=== PATIENT | female | born 1955 | race Caucasian/White ===

== ENCOUNTER 2017-10-22 17:28 | Emergency (ER) | payer OTHER, SELFPAY ==
--- NOTE | 2017-10-22 13:34 | EKG12_ITS ---
Test Reason : CP Blood Pressure : / mmHG Vent. Rate : 092 BPM Atrial Rate : 092 BPM P-R Int : 152 ms QRS Dur : 076 ms QT Int : 368 ms P-R-T Axes : 071 026 045 degrees QTc Int : 455 ms Normal sinus rhythm Normal ECG Confirmed by TED VELASCO MD ([id number]), videotape editor VIRGEN VEGA ([id number] on 10/26/2017 5:41:18 PM Referred By: MAYUR Confirmed By:TED VELASCO MD
--- NOTE | 2017-10-22 17:28 | DT_ITS ---
This patient was seen during an EMR downtime October 17, 2017 - October 24, 2017. This patient may have a combination of paper and electronic documentation or all paper documentation. All documentation is viewable within the e-chart portion of [facility] for each patient visit.
--- NOTE | 2017-10-22 19:08 | CT_ITS ---
STUDY: CTA CHEST REASON FOR EXAM: Unknown, 62 years old. Chest and back pain. Thigh pain. RADIATION DOSAGE (If Supplied By Facility): CTDIvol = ( 15.41 ) mGy, DLP = ( 1213.51 ) mGycm TECHNIQUE: The examination was performed with the intravenous administration of 100ML ml of Isovue 370 contrast material. Post-processing of the angiographic images was performed, with multiplanar reformation and 3D reconstruction. Individualized dose optimization techniques were used for this CT. COMPARISON: None. FINDINGS: Normal enhancement of the main pulmonary artery and right and left pulmonary arteries. Normal enhancement of the bilateral peripheral pulmonary arteries. There is no demonstrated pulmonary embolism. There is mild atherosclerotic calcification of the aortic arch and proximal descending thoracic aorta. There is no demonstrated aortic dissection. Normal heart and pericardium. Normal mediastinum. Normal hilar regions. Normal visualized trachea and bronchi. The lungs are well expanded. There is a 2.5 mm calcified granuloma in the anterolateral periphery of the right upper lobe area. There is ill-defined subsegmental density in the lateral periphery of the left upper lobe/lingula consistent with inflammatory/infectious change. Curvilinear subsegmental atelectasis or scarring present in the posterior right lower lobe. Normal pleura. Normal chest wall structures. There are multilevel degenerative changes of the thoracic spine. Incidental note of borderline enlarged lymph nodes at the larry hepatis. IMPRESSION: 1. No demonstrated pulmonary embolism or arterial dissection. 2. Ill-defined subsegmental density is acute versus chronic inflammatory/infectious change in the lateral periphery of the left upper lobe/lingula. 3. Small calcified granuloma in the right upper lobe, as well as minor curvilinear scarring or atelectasis in the posterior right lower lobe. 4. Borderline enlarged lymph nodes incidentally noted at the larry hepatis. Electronically Signed: Jovani Anne MD at 20:02 EDT , Service support , PROCEDURE: CTA ABDOMEN AND PELVIS REASON FOR EXAM: Female, 62 years old. Chest and back pain. Bilateral thigh pain. RADIATION DOSAGE (If Supplied By Facility): CTDIvol = ([ ]) mGy, DLP = ([ ]) mGycm Individualized dose optimization techniques were used for this CT. ? TECHNIQUE: Axial CT angiography multi-detector data acquisition was obtained from the lung bases to the ischial tuberosities following intravenous administration of 100 ml of Isovue-370 contrast. Axial images and MIP images were reconstructed from the axial data set. Post-processing of the angiographic images was performed, with multiplanar reformation and 3D reconstruction. TECHNICAL QUALITY: Good COMPARISON: None. Descriptors of Narrowing: None (0%) Mild (< 50%) Moderate (50-70%) Severe (70-90%) Subtotal/Total Occlusion (90-100%) Non-Evaluable (technically non-diagnostic) FINDINGS: Abdominal aorta: There is mild to moderate diffuse atherosclerotic calcific plaquing. There is mild fusiform ectasia of the mid to distal infrarenal aorta, as after 1.64 x 1.68 cm. There is no demonstrated dissection. Celiac artery: No demonstrated narrowing. Normal branching anatomy. There is borderline inflammatory stranding around the main trunk of the celiac axis. Superior mesenteric artery: No demonstrated narrowing. Inferior mesenteric artery: Mild ostial narrowing. Right renal artery(arteries): No demonstrated narrowing. Left renal artery(arteries): No demonstrated narrowing. Right common iliac artery: Mild to moderate calcific plaquing with no demonstrated narrowing. Right external iliac artery: No demonstrated narrowing. Right internal iliac artery: No demonstrated narrowing. Left common iliac artery: Mild atherosclerotic calcific plaquing with no demonstrated narrowing. Left external iliac artery: No demonstrated narrowing. Left internal iliac artery: Mild calcific plaquing with no demonstrated narrowing. The visualized lung bases are unremarkable. The visualized portions of the heart are within normal limits. There are occasional very small low-density areas in the right and left lobes of the liver that could be small cysts. Punctate calcification is seen in the medial upper right lobe on series 2 image 93. The portal vein diameter is 13 mm. There are a few borderline to mildly enlarged lymph nodes in the larry hepatis, presumably reactive Normal gallbladder and extrahepatic biliary system. Normal spleen. Normal pancreas. Normal bilateral adrenal glands. Normal right kidney. Well-defined 12 x 12 x 10 mm cortical cyst in the anterior upper to mid pole of the left kidney, and there is a second 8 mm cortical cyst in the posterior lower pole. No hydronephrosis. Normal visualized stomach. Normal small intestine. Normal colon. The appendix is visualized and appears normal. Normal inferior vena cava. There are a few borderline to mildly enlarged periaortic lymph nodes in the retroperitoneum. Normal urinary bladder. Normal visualized uterus. There is a diastasis of the lower rectus muscles with a lentiform-shaped 9.6 long, 7.8 cm wide, 2 cm deep anterior midline fat-containing hernia. Borderline fat-containing hernia lateral to the lower left rectus muscle as well. There are multilevel mild degenerative changes of the visualized lumbar spine, including grade 1 anterolisthesis of L3 on L4 and mild retrolisthesis of L5 on S1. CT/CT ANGIO ABD&PEL W/O&W/DYE IMPRESSION: 1. Aortic/arterial calcific plaquing with no demonstrated stenosis or dissection. 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 2. Borderline to mildly enlarged lymph nodes in the larry hepatis and periaortic retroperitoneum, likely reactive. 3. Two left renal cortical cysts are identified. No hydronephrosis. 4. The bowel is unremarkable without sign of obstruction. The appendix is normal. 5. Diastasis between the lower rectus muscles with a midline fat-containing hernia, as described. 6. Degenerative changes of the lumbar spine, as noted. Electronically Signed: Jovani Anne MD at 20:16 EDT , Service support ,
[2017-10-25 18:28] LABS: BUN 24 mg/dL (7-18); BUN/Creat Ratio 21.2 RATIO (10-20); Calcium,Total 9.8 mg/dL (8.5-10.1); Chloride 104 mmol/L (98-107); Creatinine, Serum 1.13 mg/dL (0.55-1.02); EST Glomerular Filtration Rate 52 mL/min (>60); Est Glom Filt Rate - Afr Amer 63 mL/min (>60); Glucose 96 mg/dL (74-106); Potassium 4.2 mmol/L (3.5-5.1); Sodium Level 142 mmol/L (136-145)
[2017-10-25 18:29] LABS: Anion Gap 9 (5-15)
[2017-10-25 21:05] LABS: Absolute Lymphocyte Count 2.46 X10^3/ul (0.83-4.51); Absolute Neutrophil Count 5.8 X10^3/uL (2.0-7.7); Basophil# 0.02 X10^3/uL; Basophil% 0.2 % (0-1); Eosinophil# 0.12 X10^3/uL; Eosinophils% 1.3 % (0-5); Hemoglobin 16.5 g/dl (12.0-15.0); Lymphocyte # 2.46 X10^3/ul (4.0); Lymphocyte % 26.9 % (19-41); Mean Corpuscular Hgb 31.7 pg (27.0-32.0); Mean Platelet Vol. 9.7 fl (6.2-12.0); Monocyte# 0.77 X10^3/uL; Monocyte% 8.4 % (0-10); Neutrophil # 5.75 X10^3/uL (2.7-7.7); POSITIVE COUNT NO; POSITIVE DIFFERENTIAL NO; POSITIVE MORPHOLOGY NO; Platelet Count 204 K/mm3 (150-450); RBC Distribution Width CV 14.6 % (11.6-14.6); RBC Distribution Width SD 50.1 fl (35.1-43.9); Red Blood Count 5.21 M/mm3 (4.2-5.4); White Blood Count 9.1 K/mm3 (4.4-11.0)
== END 2017-10-22 21:05 | disposition home or self-care (01) ==
LOC: ED 10-23 15:01
PROVIDERS: Emergency Provider Emergency Medicine
DX: R07.89 Other chest pain (principal); M79.652 Pain in left thigh; M79.651 Pain in right thigh
CPT/HCPCS: 36415; 71275; 74174; 80048; 84484; 85025; 93005; 96361; 96365; 96375; 99284; Q9967; A4216; J2405